=== PATIENT | male | born 1965 | race African-American/Black ===

== ENCOUNTER → 2016-10-05 | Outpatient (CLI) | payer OTHER ==
[~2016-10-05] MED LIST: ASPIR 8181 M1 PO; AUGMENTIN875 MG PO; FLEXERIL10 MG PO; HYDROCHLOROTHIA25 MG PO; NAPROSYN500 MG PO; NORVASC5 MG PO; PROTONIX40 MG PO; ULTRAM50 MG PO; ZOCOR10 MG PO
== END | disposition home or self-care (01) ==
LOC: NUC 10:41
DX: C61 Malignant neoplasm of prostate (principal); K08.9 Disorder of teeth and supporting structures, unspecified; M51.36 Other intervertebral disc degeneration, lumbar region; M41.9 Scoliosis, unspecified
CPT/HCPCS: 78306; A9503

== ENCOUNTER → 2018-05-19 | Outpatient (CLI) | payer OTHER ==
[~2018-05-19] VITALS: Ht 165.1 cm; Wt 68.5 kg
[~2018-05-19] MED LIST changes: +TYLENOL ARTHRI650 MG PO; +ZOCOR40 MG PO
== END | disposition home or self-care (01) ==
LOC: AMB 09:29
PROC: 0DJD8ZZ Inspection of Lower Intestinal Tract, Via Natural or Artificial Opening Endoscopic (ICD-10-PCS; principal; 2018-05-19)
DX: Z12.11 Encounter for screening for malignant neoplasm of colon (principal); K62.7 Radiation proctitis; K57.30 Diverticulosis of large intestine without perforation or abscess without bleeding; Z85.46 Personal history of malignant neoplasm of prostate; Z92.3 Personal history of irradiation; K21.0 Gastro-esophageal reflux disease with esophagitis; E78.5 Hyperlipidemia, unspecified; I10 Essential (primary) hypertension; Z79.82 Long term (current) use of aspirin; F17.200 Nicotine dependence, unspecified, uncomplicated; Z80.3 Family history of malignant neoplasm of breast; Z80.42 Family history of malignant neoplasm of prostate; Z83.3 Family history of diabetes mellitus; Z81.1 Family history of alcohol abuse and dependence; Z88.1 Allergy status to other antibiotic agents
CPT/HCPCS: 93005